=== PATIENT | female | born 1950 | race Hispanic/Latino ===

== ENCOUNTER 2022-03-15 12:50 | Emergency (ER) | payer MEDICARE ==
[2022-03-15 13:14] VITALS: BP 127/53
[2022-03-15] MEDS ORDERED: ACETAMINOPHEN 500 MG TABLET PO ONE (13:30)
[2022-03-15] MEDS ORDERED: ACET-66 PO (14:39)
== END 2022-03-15 15:24 | disposition home or self-care (01) ==
LOC: EDH 12:50
DX: S46.912A Strain of unspecified muscle, fascia and tendon at shoulder and upper arm level, left arm, initial encounter (principal); M25.531 Pain in right wrist; R07.89 Other chest pain; V89.2XXA Person injured in unspecified motor-vehicle accident, traffic, initial encounter; Y93.89 Activity, other specified; Y92.89 Other specified places as the place of occurrence of the external cause; Y99.8 Other external cause status
CPT/HCPCS: 71045; 73030; 73110; 93005